=== PATIENT | female | born 1940 | race Caucasian/White ===

== ENCOUNTER 2023-06-24 14:02 | Outpatient (CLI) | payer MEDICARE | END 2023-06-24 14:03 | disposition home or self-care (01) | LOC: MRI 14:02 | PROVIDERS: ATTEND Neurological Surgery | DX: M51.36 Other intervertebral disc degeneration, lumbar region (principal); M48.061 Spinal stenosis, lumbar region without neurogenic claudication | CPT/HCPCS: 72148 ==

== ENCOUNTER 2023-11-04 14:20 | Outpatient (CLI) | payer MEDICARE | END 2023-11-04 14:21 | disposition home or self-care (01) | LOC: BICCT 14:20 | PROVIDERS: ATTEND Internal Medicine Gastroenterology | DX: R10.12 Left upper quadrant pain (principal); R10.32 Left lower quadrant pain; N20.0 Calculus of kidney; K57.30 Diverticulosis of large intestine without perforation or abscess without bleeding | CPT/HCPCS: 74177; 82565 ==